=== PATIENT | female | born 1985 | race Asian ===

== ENCOUNTER 2023-05-16 12:37 | Outpatient (CLI) | payer BC ==
[~2023-05-16 12:37] MED LIST: Magnevist 469MG/ML 20 ML VIAL ONE
== END 2023-05-16 12:38 | disposition home or self-care (01) ==
LOC: BICMRI 12:37
PROVIDERS: ATTEND Ophthalmology
DX: G43.709 Chronic migraine without aura, not intractable, without status migrainosus (principal); M54.32 Sciatica, left side
CPT/HCPCS: 70543; 70553; A9579